=== PATIENT | female | born 1935 | race Caucasian/White ===

== ENCOUNTER → 2017-01-11 | Outpatient (CLI) | payer MEDICARE, OTHER, MEDICAID ==
[~2017-01-11] MED LIST: ANCEF,KEFZOL-DPS1 GM IV; COUMADIN5 MG PO; DUONEB DPS3 ML IH; LASIX DPS20 MG PO; METOPROLOL TART25 MG PO; OXYCONTIN10 MG PO; PEPCID DPS20 MG PO; ULTRAM DPS50 MG PO; ZOCOR DPS20 MG PO; ZOLOFT DPS50 MG PO
== END | disposition home or self-care (01) ==
LOC: RAD.S 12-25 09:52 → PTH.S 15:30
DX: M54.5 Low back pain (principal); S32.039A Unspecified fracture of third lumbar vertebra, initial encounter for closed fracture; M48.06 Spinal stenosis, lumbar region

== ENCOUNTER → 2017-01-30 | Outpatient (CLI) | payer MEDICARE, OTHER, MEDICAID | END | disposition home or self-care (01) | LOC: RAD.S 01-16 11:00 | DX: S32.039A Unspecified fracture of third lumbar vertebra, initial encounter for closed fracture (principal); M48.06 Spinal stenosis, lumbar region ==

== ENCOUNTER 2017-02-07 12:08 | Day surgery (SDC) | payer MEDICARE, OTHER, MEDICAID ==
[~2017-02-07] VITALS: Ht 160 cm; Wt 81.8 kg
== END 2017-02-07 16:45 | disposition home or self-care (01) ==
LOC: RAD.S 12:08 → EDSTATUS 14:00 → RAD.S 16:45
PROC: 0QS03ZZ Reposition Lumbar Vertebra, Percutaneous Approach (ICD-10-PCS; principal; 2017-02-07)
PROC: 0QU03JZ Supplement Lumbar Vertebra with Synthetic Substitute, Percutaneous Approach (ICD-10-PCS; principal; 2017-02-07)
DX: M48.56XA Collapsed vertebra, not elsewhere classified, lumbar region, initial encounter for fracture (principal); I13.0 Hypertensive heart and chronic kidney disease with heart failure and stage 1 through stage 4 chronic kidney disease, or unspecified chronic kidney disease; N18.9 Chronic kidney disease, unspecified; I50.9 Heart failure, unspecified; I48.2 Chronic atrial fibrillation; E78.5 Hyperlipidemia, unspecified; Z79.899 Other long term (current) drug therapy; Z86.73 Personal history of transient ischemic attack (TIA), and cerebral infarction without residual deficits; Z79.01 Long term (current) use of anticoagulants

== ENCOUNTER → 2017-06-11 | Outpatient (CLI) | payer MEDICARE, OTHER, MEDICAID | END | disposition home or self-care (01) | LOC: RAD.S 13:42 | DX: R06.00 Dyspnea, unspecified (principal) ==